=== PATIENT | male | born 1985 | race Two or more races ===

== ENCOUNTER 2020-07-07 03:46 | Emergency (ER) | payer OTHER ==
[~2020-07-07] VITALS: Ht 177.8 cm; Wt 102.0 kg
[2020-07-07] MEDS ORDERED: LORazepam 2 MG/ML, 1ML IVPush ONE (04:00)
[2020-07-07] MEDS ORDERED: SODIUM CHLORIDE FLUSH 10ML SYR IVF ONE (04:00)
--- NOTE | 2020-07-07 04:02 | NUR ---
PT BIB EMS FROM [facility] WITH LEFT SIDED CHEST PRESSURE WITH PAIN AND NUMBNESS RADIATING DOWN LEFT ARM. PT REPORTS WAKING UP TO A "POP" ON LEFT CHEST WALL. REPORTS DIZZINESS WITH POSSIBLE SYNCOPAL EPISODE. PT DENIES ANY OTHER RADIATION, DENIES HX OF SAME. REPORTS HTN 140/94 ON ARRIVAL TO ED. EKG DONE ON ARRIVAL TO ED. OIL RIG ROUGHNECK EMS: 300ML NS PT PLACED ON ALL MONTIORING, CALL LIGHT WITHIN REACH. ALL SAFETY MEASURES IN PLACE. LAW ENFORCEMENT IN ROOM WITH PT.
[2020-07-07] MEDS ORDERED: LORazepam 2 MG/ML, 1ML ONE (04:08)
[2020-07-07 04:12] LABS: BASOPHILS % (AUTO) 0 % (0-1); EOSINOPHILS % (AUTO) 1 % (1-7); LYMPHOCYTES % (AUTO) 26 % (22-44); MEAN CORPUSCULAR HEMOGLOBIN 28.1 pg (27.5-34.5); MEAN CORPUSCULAR HGB CONC 34.7 g/dL (33.2-36.2); MEAN PLATELET VOLUME 8.9 fL (7.4-10.4); MONOCYTES % (AUTO) 8 % (2-9); NEUTROPHILS % (AUTO) 65 % (42-75); PLATELET COUNT 249 x10^3/uL (130-400); RED BLOOD COUNT 5.62 x10^6/uL (4.38-5.82); RED CELL DISTRIBUTION WIDTH 12.7 % (9.4-14.8)
[2020-07-07 04:14] LABS: MD NO
[2020-07-07 04:25] LABS: ALANINE AMINOTRANSFERASE 50 U/L (12-78); ALBUMIN 4.3 g/dL (3.4-5.0); ANION GAP 9 mmol/L (5-15); CALCIUM 9.5 mg/dL (8.5-10.1); CHLORIDE 102 mmol/L (98-107); CREATININE 1.42 mg/dL (0.7-1.3)
[2020-07-07 04:29] LABS: ALKALINE PHOSPHATASE 52 U/L (45-117); BILIRUBIN,TOTAL 1.7 mg/dL (0.2-1.0); TOTAL PROTEIN 8.1 g/dL (6.4-8.2); TROPONIN I < 0.015 ng/mL (0.000-0.045)
--- NOTE | 2020-07-07 04:40 | NUR ---
PT MEDICATED PER MAR. UPDATED ON POC. MONITORING IN PLACE, CALL LIGHT WITHIN REACH.
[2020-07-07] MEDS ORDERED: SODIUM CHLORIDE 0.9% 1,000ML IVBOLUS ONE (05:00)
[2020-07-07 05:39] VITALS: BP 131/86
== END 2020-07-07 06:31 | disposition home or self-care (01) ==
LOC: ED 04:08
DX: R07.2 Precordial pain (principal); E86.0 Dehydration; F41.1 Generalized anxiety disorder; R42 Dizziness and giddiness; I10 Essential (primary) hypertension; R07.89 Other chest pain
CPT/HCPCS: 36415; 71045; 80053; 83880; 84484; 85025; 96374; 99284; J2060; J7030

== ENCOUNTER 2021-01-13 06:55 | Outpatient (CLI) | payer OTHER | END 2021-01-13 23:59 | disposition home or self-care (01) | LOC: CFH 06:55 | PROVIDERS: ATTEND Internal Medicine Cardiovascular Disease | DX: I10 Essential (primary) hypertension (principal); R07.9 Chest pain, unspecified | CPT/HCPCS: 93306 ==